=== PATIENT | male | born 1960 | race Caucasian/White ===

== ENCOUNTER 2016-05-29 20:34 | Emergency (ER) | payer OTHER, MEDICARE ==
[~2016-05-29] VITALS: Ht 193 cm; Wt 127.0 kg
[2016-05-29 20:41] VITALS: BP 182/99
--- NOTE | 2016-05-29 22:04 | PHYS DOC ---
Past Medical History Past Medical History: Cancer Past Surgical History: Cholecystectomy Additional Past Surgical Histo: Right partial nephrectomy, hernia repair Alcohol Use: None Drug Use: None Adult General Chief Complaint Chief Complaint: HAND PROBLEM HPI HPI Patient is a 56 year old female presents the emergency department stating that he smashed his left middle finger imaging the headrest in the seat tonight around 4:00. He states that the area bled quite a bit. He is unsure when his last tetanus immunization occurred. He has full range of motion of the finger. He does state he has some numbness and tingling to the tip. Patient appears to have 2 lacerations one that appears to be slightly deeper than the other which appears to be is a superficial flap laceration. Review of Systems Review of Systems Constitutional: Denies fever or chills [] Eyes: Denies change in visual acuity, redness, or eye pain [] HENT: Denies nasal congestion or sore throat [] Respiratory: Denies cough or shortness of breath [] Cardiovascular: No additional information not addressed in HPI [] GI: Denies abdominal pain, nausea, vomiting, bloody stools or diarrhea [] : Denies dysuria or hematuria [] Musculoskeletal: Denies back pain or joint pain [] Integument: Denies rash or skin lesions. Patient with left middle finger pain and discomfort[] Neurologic: Denies headache, focal weakness or sensory changes [] Current Medications Current Medications Current Medications Medications (Trade) Dose Ordered Sig/Mary Jane Start Time Stop Time Status Last Admin Dose Admin Diphtheria/ Tetanus/Acell Pertussis (Boostrix) 0.5 ml ONCE ONCE 05/29/16 22:30 05/29/16 22:31 DC 05/29/16 22:42 0.5 ML Lidocaine/Sodium Bicarbonate (Buffered Lidocaine 1%) 20 ml 1X ONCE 05/29/16 22:30 05/29/16 22:31 DC 05/29/16 22:41 20 ML Allergies Allergies Allergies Coded Allergies Type Severity Reaction Last Updated Verified No Known Drug Allergies 05/29/16 No Physical Exam Physical Exam Constitutional: Well developed, well nourished, no acute distress, non-toxic appearance. [] HENT: Normocephalic, atraumatic, bilateral external ears normal, oropharynx moist, no oral exudates, nose normal. [] Eyes: PERRLA, EOMI, conjunctiva normal, no discharge. [] Neck: Normal range of motion, no tenderness, supple, no stridor. [] Cardiovascular:Heart rate regular rhythm, no murmur [] Lungs & Thorax: Bilateral breath sounds clear to auscultation [] Skin: Warm, dry, no erythema, no rash. Patient with 2 lacerations noted. One laceration appears to be 0.5 cm in length, second laceration is a superficial flap laceration. Bleeding is currently controlled. Back: No tenderness Extremities: No tenderness, no cyanosis, no clubbing, ROM intact, no edema. [] Neurologic: Alert and oriented X 3, normal motor function, normal sensory function, no focal deficits noted. [] Psychologic: Affect normal, judgement normal, mood normal. [] Current Patient Data Vital Signs Vital Signs Date Time Temp Pulse Resp B/P Pulse Ox O2 Delivery O2 Flow Rate FiO2 05/29/16 20:41 97.5 68 16 97 Room Air 97.5 EKG EKG [] Radiology/Procedures Radiology/Procedures [] Course & Med Decision Making Course & Med Decision Making Pertinent Labs and Imaging studies reviewed. (See chart for details) Patient tolerated suture placement into the third left fingertip. Patient had 4 sutures were placed over interrupted 3 with one laceration 1 with the other. Site was injected with 1% lidocaine approximately 6 mL for digital block. Site was cleaned with Betadine. Site at a republican been irrigated with water. X-rays were completed with a possibility of a fracture at the tuft of the finger. Patient was provided with information. Recommended Tylenol and ibuprofen for fever chills generalized body aches and discomfort. Patient will be placed on Keflex for potential open fracture. Recommended keeping the site clean and dry cleaning it with soap and water twice a day and apply antibiotic ointment. We' ll place a aluminum finger splint over the finger to help for protection. Patient will be provided with Dr. Ortega's number to follow up with. Patient agrees with discharge instructions treatment regimens and follow-up recommendations. [] Dragon Disclaimer Dragon Disclaimer This electronic medical record was generated, in whole or in part, using a voice recognition dictation system. Departure Departure Impression: Primary Impression: Fracture, finger, distal phalanx, open Additional Impression: Finger laceration Disposition: 01 HOME, SELF-CARE Condition: STABLE Referrals: ASHLEY ZUNIGA MD (PCP) PRABHAKAR ORTEGA MD Patient Instructions: Finger Fracture, Laceration Care, Adult, [id number], Sutured Wound Care, [id number] Additional Instructions: Activity as tolerated. Keep the finger clean and dry. When the site twice a day with soap and water and apply antibiotic ointment to the area. Watch for signs and symptoms of infection: Redness, warmth, tenderness or any yellow/greenish drainage of a come from the site. Physician occur place follow- up with her with donna duong. Medication as prescribed. Tylenol or ibuprofen for pain and discomfort. Ice packs on 20 minutes off 20 minutes several times a day. Elevation as much as possible. Wear the splint to help protect the tip of the finger. Suture removal in the next 7-10 days. Follow-up with Dr. Ortega in the next week. Return back to emergency prior signs symptoms of become worse. Problem Qualifiers LINK HARKINS APRN May 29, 2016 22:04
[2016-05-29] MEDS ORDERED: LIDOCAINE 1% / SOD BICARB 8.4% 20 ML VIAL. IJ ONE (22:30)
[2016-05-29] MEDS ORDERED: DIPHTH,PERTUSS(ACELL),TET TOX 0.5 ML DISP.SYRIN. VAX IM ONE (22:30)
[2016-05-29] MEDS ORDERED: CEPH-264 PO (23:05)
--- NOTE | 2016-05-30 07:49 | RAD ---
EXAM: Left third digit, 3 views.. HISTORY: Laceration. COMPARISON: None. FINDINGS: Frontal, lateral and oblique views of the left hand are obtained. There is lucency traversing the tuft of the third distal phalanx, a component of which is due to overlying soft tissue artifact and a component of which is developmental. No foreign body is seen. IMPRESSION: Lucency traversing the tuft of the left third distal phalanx, likely artifactual or developmental. Correlate for point tenderness in this location to exclude a nondisplaced fracture. No foreign body is seen to correspond with a reported laceration injury.
== END 2016-05-29 23:20 | disposition home or self-care (01) ==
LOC: ER 20:34
DX: S62.633B Displaced fracture of distal phalanx of left middle finger, initial encounter for open fracture (principal); Z90.5 Acquired absence of kidney; Z90.49 Acquired absence of other specified parts of digestive tract; W23.0XXA Caught, crushed, jammed, or pinched between moving objects, initial encounter; Y93.89 Activity, other specified; Y92.89 Other specified places as the place of occurrence of the external cause; Y99.8 Other external cause status
CPT/HCPCS: 29130; 73130; 90471; 90715; 99284-25

== ENCOUNTER → 2017-09-20 | Outpatient (CLI) | payer MEDICARE | END | disposition home or self-care (01) | LOC: KCIC 10:15 | DX: M47.892 Other spondylosis, cervical region (principal); M17.11 Unilateral primary osteoarthritis, right knee; R07.9 Chest pain, unspecified; Z90.49 Acquired absence of other specified parts of digestive tract; Z90.5 Acquired absence of kidney | CPT/HCPCS: 71046; 72040; 73562 ==

== ENCOUNTER → 2017-11-02 | Outpatient (CLI) | payer MEDICARE ==
[~2017-11-02] MED LIST: CEPH-264 PO
--- NOTE | 2017-11-02 17:21 | KCIC ---
MRI Cervical Spine Without Contrast History: Neck pain, bilateral radiculopathy for couple of months Technique: Multiplanar, multi sequential noncontrast MR imaging was performed of the cervical spine. Comparison: None Findings: There is motion degradation variably for all image sequences. Cervical cord caliber is within normal limits without expansile or defined signal change, motion artifact of the cord limiting accurate evaluation for subtle signal change. There is no convincing marrow edema. Intervertebral disc spaces are maintained. There is no significant abnormality of the cervical medullary junction. C2-C3: Spinal canal and neural foramina are adequate. C3-C4: Spinal canal and the neural foramina are adequate. C4-C5: There is bilateral facet degenerative change. Spinal canal and neural foramina are adequate. C5-C6: There is bilateral facet degenerative change. There is negligible disc osteophyte complex and bulge. Spinal canal is adequate. The is probable minimal narrowing of the left neural foramen, right neural foramen not significantly narrowed. C6-C7: Spinal canal and neural foramina are adequate. C7-T1: Spinal canal is adequate. There is left uncovertebral degenerative change and facet degenerative change, likely at least mild if not moderate narrowing of the left neural foramen, right neural foramen adequate. Impression: 1. Exam is degraded by motion. There is no significant cervical spinal stenosis. There is likely at least mild if not moderate narrowing of the left C7-T1 neural foramen in part from uncovertebral degenerative change. There is minimal spondylosis C5-6. Electronically signed by: Julien Betancur MD (11/02/2017 5:18 PM) [id number]
== END | disposition home or self-care (01) ==
LOC: KCIC MRI 15:13
PROVIDERS: ATTEND Family Medicine
DX: M47.892 Other spondylosis, cervical region (principal); M17.11 Unilateral primary osteoarthritis, right knee; Z90.49 Acquired absence of other specified parts of digestive tract; Z90.5 Acquired absence of kidney
CPT/HCPCS: 72141

== ENCOUNTER → 2018-10-28 | Day surgery (SDC) | payer MEDICARE ==
[~2018-10-28] MED LIST changes: +CELE200C PO; +HYDR200T71 PO; +IV RINGERS,LACTATED 1000ML 1,000 ML IV SCH; +LIDOCAINE 2% PF 5 ML VIAL. ONE; +LISI10TA2 PO; +METF500T16 PO; +PROPOFOL 40 ML IV ONE
[2018-10-28 09:23] VITALS: BP 125/63
== END ==
LOC: ENDOS 07:14
PROVIDERS: ATTEND Internal Medicine Gastroenterology
DX: K64.0 First degree hemorrhoids (principal); K63.89 Other specified diseases of intestine; F15.90 Other stimulant use, unspecified, uncomplicated; Z87.39 Personal history of other diseases of the musculoskeletal system and connective tissue; Z72.89 Other problems related to lifestyle; Z87.891 Personal history of nicotine dependence; Z90.49 Acquired absence of other specified parts of digestive tract; Z98.52 Vasectomy status
CPT/HCPCS: 45378; J2001; J2704

== ENCOUNTER → 2019-05-31 | Outpatient (CLI) | payer MEDICARE ==
[2018-10-28 09:23] VITALS: BP 125/63
[~2019-05-31] MED LIST changes: -IV RINGERS,LACTATED 1000ML 1,000 ML IV SCH; -LIDOCAINE 2% PF 5 ML VIAL. ONE; -PROPOFOL 40 ML IV ONE
--- NOTE | 2019-05-31 12:37 | KCIC ---
SHOULDER 2+V RIGHT History: Right shoulder pain for about 2 weeks Comparison: None. Findings: 3 views of the right shoulder submitted. There is mild degenerative change of the right acromioclavicular joint. No acute fracture or dislocation is identified. Impression: 1. There is mild degenerative change of the acromioclavicular joint. Electronically signed by: Julien Betancur MD (05/31/2019 12:34 PM) [id number]
== END ==
LOC: KCIC 11:57
PROVIDERS: ATTEND Family Medicine
DX: M19.011 Primary osteoarthritis, right shoulder (principal)
CPT/HCPCS: 73030